=== PATIENT | male | born 1990 | race Caucasian/White ===

== ENCOUNTER 2018-09-01 13:28 | Emergency (ER) | payer OTHER ==
[~2018-09-01] VITALS: Ht 180.3 cm; Wt 104.3 kg
[2018-09-01 13:33] VITALS: Ht 180.3 cm; Wt 104.3 kg
[2018-09-01 16:08] LABS: PLATELET COUNT 296 x10^3mcL (130-400); RED CELL DISTRIBUTION WIDTH 12.3 % (11.5-14.5)
[2018-09-01 16:15] LABS: CALCIUM 8.4 mg/dL (8.5-10.1); CHLORIDE SERUM 104 mmol/L (98-107); CREATININE SERUM 1.2 mg/dL (0.7-1.3); GFR1 > 60 mL/min; GLUCOSE SERUM 67 mg/dL (74-106); POTASSIUM SERUM 3.9 mmol/L (3.5-5.1); SODIUM SERUM 140 mmol/L (136-145)
[2018-09-01 16:28] LABS: ALBUMIN 3.5 g/dL (3.4-5.0); ALKALINE PHOSPHATASE 63 U/L (46-116); ALT/SGPT 61 U/L (16-63); AST/SGOT 26 U/L (15-37); BILIRUBIN TOTAL 0.6 mg/dL (0.20-1.00); FREE T4 1.09 ng/dL (0.76-1.46); TOTAL PROTEIN, SERUM 7.2 g/dL (6.4-8.2)
[2018-09-01 16:33] LABS: BAND NEUTROPHIL 1 % (0-10); MONOCYTE 3 % (0-7); SEGMENTED NEUTROPHILS 86 % (37-75)
[2018-09-01 16:35] LABS: PLATELET MORPHOLOGY PLATELETS NORMAL; rbc morphology (normal/abnorm) NORMAL (NORMAL)
[2018-09-01 17:42] LABS: microscopic required? YES; urine erythrocyte NEGATIVE (NEGATIVE)
[2018-09-01 17:53] LABS: AMPHETAMINE QUAL UR NONE DETECTED (See below)
[2018-09-01 18:58] VITALS: BP 113/64
== END 2018-09-01 18:58 | disposition home or self-care (01) ==
LOC: ED 13:28
PROVIDERS: Emergency Medicine
DX: R55 Syncope and collapse (principal); R42 Dizziness and giddiness; F14.10 Cocaine abuse, uncomplicated; Z72.89 Other problems related to lifestyle
CPT/HCPCS: 82962; 84439; J7030